=== PATIENT | female | born 1985 | race Caucasian/White ===

== ENCOUNTER 2016-09-10 13:43 | Emergency (ER) | payer MEDICAID ==
--- NOTE | 2016-09-10 14:21 | ER Document Report ---
ED Medical Screen (RME) - General Stated Complaint: DIARRHEA,ABDOMINAL PAIN,FATIGUE Notes: Patient is a 30-year-old female who returns 7 days ago from traveling to [place] , [place], [place], [place] and [place] for 5 months with abdominal pain and diarrhea started wednesday. previous diagnosis of giardia I have greeted and performed a rapid initial assessment of this patient. A comprehensive ED assessment and evaluation of the patient, analysis of test results and completion of the medical decision making process will be conducted by additional ED providers. TRAVEL OUTSIDE OF THE [place] IN LAST 30 DAYS: Yes - Related Data Allergies/Adverse Reactions: Penicillins Allergy (Verified 09/10/16 14:18) Past Medical History - Immunizations Hx Diphtheria, Pertussis, Tetanus Vaccination: Yes - last year
[2016-09-10] MEDS ORDERED: ONDANSETRON 4 MG TAB.RAPDIS PO ONE (14:22)
[2016-09-10 14:57] LABS: ABSOLUTE EOSINOPHILS # (AUTO) 0.1 10^3/uL (0.0-0.6); ABSOLUTE LYMPHOCYTES (AUTO) 1.7 10^3/uL (0.5-4.7); ABSOLUTE MONOCYTES (AUTO) 0.7 10^3/uL (0.1-1.4); ABSOLUTE NEUT (AUTO) 3.4 10^3/uL (1.7-8.2); BASOPHILS % (AUTO) 0.6 % (0-2); EOSINOPHILS % (AUTO) 2.4 % (0-6); HEMATOCRIT 40.8 % (36.0-47.0); HEMOGLOBIN 13.5 g/dL (12.0-15.5); HGB HCT DIFFERENCE -0.3; LYMPHOCYTES % (AUTO) 28.3 % (13-45); MEAN CORPUSCULAR HEMOGLOBIN 28.1 pg (27.0-33.4); MEAN CORPUSCULAR HGB CONC 33.2 g/dL (32.0-36.0); MEAN CORPUSCULAR VOLUME 85 fl (80-97); MONOCYTES % (AUTO) 11.9 % (3-13); RED BLOOD COUNT 4.83 10^6/uL (3.72-5.28); RED CELL DISTRIBUTION WIDTH 14.6 % (11.5-14.0); SEGMENTED NEUTROPHILS % (AUTO) 56.8 % (42-78)
[2016-09-10 15:19] LABS: ALANINE AMINOTRANSFERASE 67 U/L (9-52); ALBUMIN 4.3 g/dL (3.5-5.0); ALKALINE PHOSPHATASE 90 U/L (38-126); ANION GAP 8 (5-19); ASPARTATE AMINO TRANSFERASE 22 U/L (14-36); BILIRUBIN,TOTAL 0.4 mg/dL (0.2-1.3); BLOOD UREA NITROGEN 10 mg/dL (7-20); CALCIUM 9.6 mg/dL (8.4-10.2); CARBON DIOXIDE 28 mmol/L (22-30); CHLORIDE 104 mmol/L (98-107); CREATININE RESULT 0.74 mg/dL (0.52-1.25); GLUCOSE 91 mg/dL (75-110); LIPASE 87.3 U/L (23-300); POTASSIUM 4.5 mmol/L (3.6-5.0); SODIUM 139.9 mmol/L (137-145); TOTAL PROTEIN 7.2 g/dL (6.3-8.2)
[2016-09-10] MEDS ORDERED: METOCLOPRAMIDE HCL 10 MG TABLET PO ONE (18:41)
[2016-09-10] MEDS ORDERED: DIPHENHYDRAMINE HCL 50 MG CAPSULE PO ONE (18:42)
--- NOTE | 2016-09-10 18:56 | ER Document Report ---
ED General - General Chief Complaint: Loose Stools Stated Complaint: DIARRHEA,ABDOMINAL PAIN,FATIGUE Mode of Arrival: Ambulatory Information source: Patient Notes: Patient is a 30 yo female who presents with 5 day history of abdominal cramping , loose diarrhea, belching and fatigue. She reports that it worsened today when she had an episode of stool incontinence. She endorses recent travel to [place] for the past 5 months. She returned in the middle of July. She has hx of giardia and states this feels the same to her. She has not taken anything for this at home. She denies fever, chills, vomiting, dysuria, pyuria or hematuria. TRAVEL OUTSIDE OF THE [place] IN LAST 30 DAYS: Yes - [place], [place] - Related Data Allergies/Adverse Reactions: Penicillins Allergy (Verified 09/10/16 18:59) Past Medical History - Social History Smoking Status: Never Smoker Family History: Reviewed & Not Pertinent Patient has suicidal ideation: No Patient has homicidal ideation: No Renal/ Medical History: Denies: Hx Peritoneal Dialysis - Immunizations Hx Diphtheria, Pertussis, Tetanus Vaccination: Yes - last year Review of Systems - Review of Systems Constitutional: See HPI EENT: No symptoms reported Cardiovascular: No symptoms reported Respiratory: No symptoms reported Gastrointestinal: See HPI Genitourinary: No symptoms reported Female Genitourinary: No symptoms reported Musculoskeletal: No symptoms reported Skin: No symptoms reported Hematologic/Lymphatic: No symptoms reported Neurological/Psychological: No symptoms reported Physical Exam - Notes Notes: PHYSICAL EXAM: CONSTITUTIONAL: Alert and oriented, well-appearing and in no acute distress. Appears uncomfortable. HENT: Normocephalic, atraumatic. Moist mucous membranes. EYES: Pupils equal round and reactive to light, EOM intact. Sclera anicteric, conjunctiva are normal. No entrapment. NECK: supple without lymphadenopathy. No midline tenderness or paraspinous muscle spasms. No step-offs or deformities. ROM intact. HEART: Regular rate and rhythm without murmurs. LUNGS: CTAB and equal. No wheezes, rales or rhonchi. GI: Normactive bowel sounds. generalized tenderness to palpation, no guarding, no rebound, non-distended. No organomegaly. no CVAT. BACK: nontender, no paraspinous spasm, 5+/5 strengths, DTRs 2+, SLR -. EXTREMITIES: Normal range of motion, no pitting edema. No cyanosis. Cap Refill < 3 seconds. SKIN: Warm and dry. Normal turgor. No rashes or lesions noted. Course - Re-evaluation Re-evalutation: 09/10/16 18:56 I have consulted with the supervisory physician per [facility] guidelines. Patient seen and examined. CBC/chem panel unremarkable. Stool sample POS for white cells, negative for C.diff. 09/10/16 19:53 Ordered O&P, Giardia cysto on stool - pending. Given PO reglan/benadryll. Will treat empirically for Giardia with metronidazole. Discussed return precautions with patient. Discharged home in stable condition. patient in verbal agreement with management and plan and agrees to follow-up with primary care doctor in 2-3 days. - Laboratory Result Diagrams: 09/10/16 14:30 09/10/16 14:30 Laboratory results interpreted by me: 09/10/16 09/10/16 09/10/16 14:30 14:30 14:30 RDW 14.6 H ALT 67 H Stool for White Cells MODERATE H Discharge - Discharge Clinical Impression: Giardiasis, Abdominal cramping, International traveler Diarrhea Qualifiers: Diarrhea type: infectious Qualified Code(s): A09 - Infectious gastroenteritis and colitis, unspecified Condition: Stable Disposition: HOME, SELF-CARE Additional Instructions: Amoebic Dysentery (Presumed) You have an amoeba infection of the intestines. The amoeba is passed in contaminated water or food, or by personal contact. Most often, the infection occurs while visiting another country. Symptoms include abdominal cramps and diarrhea. Often the diarrhea is severe and bloody. The amoeba can also move through the intestine to infect other areas of the body. It does this in about one out of twenty patients. Abscesses form where the amoeba grows. Most often, this is the liver -- but it can also infect the brain, lung, heart, or kidney. The amoeba can be killed with medication -- for example, metronidazole ( Flagyl). There is no immunity after infection. You can catch it again. Return if there is increasing abdominal pain, worsening diarrhea, bloody diarrhea, severe headache, chest pain, fever, or any other new symptoms. Follow-Up Care Although no definite follow-up visit has been scheduled for you, you should return if there is unexpected worsening or a significant change in your symptoms. Prescriptions: Metronidazole 500 mg PO BID 7 Days Referrals: CYNTHIA MOSHER MD [Primary Care Provider] - Follow up in 3-5 days
[2016-09-10] MEDS ORDERED: METRONIDAZOLE 500 MG TABLET PO ONE (19:05)
[2016-09-10 20:08] VITALS: BP 113/64
[2016-09-11 08:29] LABS: CRYPTOSPORIDIUM PARVUM AG NEGATIVE (NEGATIVE); GIARDIA LAMBLIA AG NEGATIVE (NEGATIVE)
== END 2016-09-10 20:09 | disposition home or self-care (01) ==
LOC: ER 13:43
DX: A07.1 Giardiasis [lambliasis] (principal); R53.83 Other fatigue; R10.9 Unspecified abdominal pain; R15.9 Full incontinence of feces; Z88.0 Allergy status to penicillin
CPT/HCPCS: 99284; 87329; 36415; 87045; 89055; 87205; 87209; 86403; 83690; 87177; 85025; 82272; 80053; 87493 ×2; J3490 ×3; S0119

== ENCOUNTER 2019-01-06 22:32 | Emergency (ER) | payer MEDICAID ==
[2019-01-06 22:44] VITALS: BP 136/77
--- NOTE | 2019-01-07 00:13 | ER Document Report ---
HPI - HPI Time Seen by Provider: 01/07/19 00:05 Pain Level: 3 Context: Patient is a 33-year-old female who presents emergency department with a chief complaint of left ear pain. She has had her symptoms for the past 3 weeks and she was placed on azithromycin, but continued to have symptoms after anabiotics. She was seen this past and diagnosed with otitis media and otitis externa. She was prescribed clindamycin and Ciprodex. She has been able to take her clindamycin, but due to insurance reasons, she was not able to get the Ciprodex. Denies any past medical history. Denies any fever, body aches, or chills. - ROS Notes: REVIEW OF SYSTEMS: CONSTITUTIONAL : Denies recent illness. Denies recent unintentional weight loss. Denies fever, chills, or sweats. EENT: See HPI CARDIOVASCULAR: Denies chest pain. RESPIRATORY: Denies shortness of breath, cough, congestion, difficulty breathing, or wheezing. GASTROINTESTINAL: Denies nausea, vomiting, and diarrhea. Denies abdominal pain. Denies constipation. GENITOURINARY: Denies difficulty urinating, burning, blood in urine, urgency or frequency. MUSCULOSKELETAL: Denies neck and back pain. Denies joint pain or swelling. SKIN: Denies rash, itchiness, or lesions HEMATOLOGIC : Denies easy bruising or bleeding. LYMPHATIC: Denies swollen, painful, enlarged glands. NEUROLOGICAL: Denies no numbness or tingling denies weakness. Denies headache. Denies altered mental status. Denies alteration in speech. PSYCHIATRIC: Denies stress, anxiety, alteration in sleep patterns, or depression. All other systems reviewed and negative. - REPRODUCTIVE Reproductive: DENIES: : Past Medical History - General Information source: Patient - Social History Smoking Status: Never Smoker Family History: Reviewed & Not Pertinent Renal/ Medical History: Denies: Hx Peritoneal Dialysis - Immunizations Hx Diphtheria, Pertussis, Tetanus Vaccination: Yes - last year Vertical Provider Document - CONSTITUTIONAL Notes: PHYSICAL EXAMINATION: GENERAL: Appears well, healthy, well-nourished, no acute distress. HEAD: Normocephalic, atraumatic. EYES: PERRL, conjunctiva normal, all extraocular movements intact, sclera nonicteric ENT: Moist mucous membranes. Edema and erythema noted to left tympanic membrane. Edema and erythema noted to left external auditory canal. NECK: Supple, no noticeable swelling, redness, rash. Normal range of motion. LUNGS: Equal breath sounds bilaterally and clear to auscultation. No wheezes rales or rhonchi. CARDIOVASCULAR: S1-S2, regular rate, regular rhythm. Radial pulses 2+, normal. PSYCH: Normal mood, normal affect. - INFECTION CONTROL TRAVEL OUTSIDE OF THE [place] IN LAST 30 DAYS: No Course - Re-evaluation Re-evalutation: 01/07/19 00:05 The patient is already on clindamycin, I will not order her any other antibiotics. We will provide her Ciprodex here in the emergency department. There is no pain at the mastoid process, therefore I do not suspect the patient has mastoiditis. She does have otitis media and externa. Verbal discharge instructions were given to the patient. They verbalized understanding. They are stable for discharge. - Vital Signs Vital signs: Temp Pulse Resp BP Pulse Ox 97.8 F 67 16 136/77 H 100 01/06/19 22:41 01/06/19 22:41 01/06/19 22:41 01/06/19 22:41 01/06/19 22:41 Discharge - Discharge Clinical Impression: Otitis externa Qualifiers: Otitis externa type: noninfectious Noninfectious otitis externa type: other type Chronicity: acute Laterality: left Qualified Code(s): H60.592 - Other noninfective acute otitis externa, left ear Condition: Stable Disposition: HOME, SELF-CARE Instructions: Use of Ear Drops ([facility]) Additional Instructions: You are seen today in the emergency department for left ear pain. Please continue the clindamycin you were given by your primary care doctor. You have been given Ciprodex, the eardrops they prescribed to you. Please place 4 drops to your left ear twice a day x7 days. Follow-up with your primary care provider if you have worsening symptoms. Forms: Return to Work Referrals: CYNTHIA MOSHER MD [NO LOCAL MD] - Follow up as needed
[2019-01-07] MEDS ORDERED: CIPROFLOXACIN HCL/DEXAMETH OTIC DROP 7.5 ML AS ONE (00:14)
== END 2019-01-07 00:27 | disposition home or self-care (01) ==
LOC: ER 22:32
DX: H60.502 Unspecified acute noninfective otitis externa, left ear (principal); H92.02 Otalgia, left ear; H66.90 Otitis media, unspecified, unspecified ear; T49.6X6A Underdosing of otorhinolaryngological drugs and preparations, initial encounter; Z91.128 Patient's intentional underdosing of medication regimen for other reason; Z91.14 Patient's other noncompliance with medication regimen
CPT/HCPCS: 99282; J3490